=== PATIENT | male | born 1975 | race Caucasian/White ===

== ENCOUNTER 2019-10-12 09:13 | Emergency (ER) | payer SELFPAY ==
--- NOTE | 2019-10-12 10:00 | EDM.PDOC ---
ED HPI GENERAL MEDICAL PROBLEM - General Stated Complaint: chest pains Time Seen by Provider: 10/12/19 09:35 Source of Information: Reports: Patient History Limitations: Reports: No Limitations - History of Present Illness INITIAL COMMENTS - FREE TEXT/NARRATIVE: pt comes in ambulatory here with concerns for recurrent episodes of chest pains that he has been having for 3 days, longest one was last evening lasting about 30 minutes , describe its as dull and sharp/ 8/10/ substernal and radiating to left arm , denies diaphoresis or any associated SOB , dizziness, palpitation, etc or history of similar problems, he presented here last night for evaluation but changed his mind after registration issues, pt went home and tells me he had another brief episd for few minutes similar to the above and nothing since then, he is here this morning asymptomatic and appear comfortable. pt report Hx of GERD but states this is different and unlike GERD sx by any definition, pt report Hx of ongoing smoking and describe himself as a social drinker. pt is hypertensive here on arrival and tells me he had checked his BP in the past and typically it runs in the 140s systolic, rest of vitals are WNL. - Related Data Allergies Allergy/AdvReac Type Severity Reaction Status Date / Time No Known Allergies Allergy Verified 10/12/19 09:49 Home Meds: Home Meds NK [No Known Home Meds] 10/12/19 [History] ED ROS GENERAL - Review of Systems Review Of Systems: See Below Constitutional: Reports: No Symptoms HEENT: Reports: No Symptoms Respiratory: Reports: No Symptoms Cardiovascular: Reports: Chest Pain. Denies: Dyspnea on Exertion, Edema, Lightheadedness, Orthopnea, Palpitations GI/Abdominal: Reports: No Symptoms : Reports: No Symptoms Musculoskeletal: Reports: No Symptoms Skin: Reports: No Symptoms Neurological: Reports: No Symptoms ED EXAM, GENERAL - Physical Exam Exam: See Below Exam Limited By: No Limitations General Appearance: Alert, No Apparent Distress Eye Exam: Bilateral Eye: Normal Inspection Throat/Mouth: Normal Inspection Head: Atraumatic Neck: Normal Inspection Respiratory/Chest: No Respiratory Distress, Lungs Clear, Normal Breath Sounds Cardiovascular: Normal Peripheral Pulses, Regular Rate, Rhythm GI/Abdominal: Normal Bowel Sounds, Soft, Non-Tender Back Exam: Normal Inspection, Full Range of Motion Extremities: Normal Inspection, Normal Range of Motion Neurological: Alert, Oriented, CN II-XII Intact, No Motor/Sensory Deficits Psychiatric: Normal Affect Skin Exam: Warm Course - Vital Signs Text/Narrative:: EKG shows NSR, no acute changes, CXR is clear, trop is elevated, rest of labs are unremarkable. pt remained asymptomatic here, finch has unstable angina and possible infarct last night , was given labetalol , full asa stephanie one does of heparin. Dr Louie Hutton at [place] was consulted and was in acceptance of pt care. pt adamantly refused ambulance transfer, while expressing full understanding of potential associated risk including sudden from recurrent cardiac event in [facility]. pt to remain NPO. Dx unstable angina Plan transfer to [facility]. Last Recorded V/S: Last Vital Signs Temp 36.8 C 10/12/19 09:13 Pulse 72 10/12/19 10:00 Resp 16 10/12/19 10:00 BP 138/99 H 10/12/19 10:00 Pulse Ox 95 10/12/19 10:00 - Orders/Labs/Meds Orders: Active Orders 24 hr Category Date Time Status CXR [Chest 2V] [CR] Stat Exams 10/12/19 10:03 Taken Labs: Laboratory Tests 10/12/19 10/12/19 10/12/19 Range/Units 09:30 09:30 09:30 WBC 11.2 (4.5-12.0) X10-3/uL RBC 5.47 (4.30-5.75) x10(6)uL Hgb 16.9 (13.5-17.8) g/dL Hct 50.1 (30.0-51.3) % MCV 91.6 (80-96) fL MCH 30.8 (27.7-33.6) pg MCHC 33.6 (32.2-35.4) g/dL RDW 12.7 (11.5-15.5) % Plt Count 314 (125-369) X10(3)uL Sodium 136 (135-145) mmol/L Potassium 4.2 (3.5-5.3) mmol/L Chloride 101 (100-110) mmol/L Carbon Dioxide 25 (21-32) mmol/L BUN 14 (7-18) mg/dL Creatinine 1.2 (0.70-1.30) mg/dL Est Cr Clr Drug Dosing 89.70 mL/min Estimated GFR (MDRD) > 60 (>60) BUN/Creatinine Ratio 11.7 (9-20) Glucose 120 H (80-116) mg/dL Calcium 9.4 (8.6-10.2) mg/dL Total Bilirubin 1.2 (0.1-1.3) mg/dL AST 22 (5-25) IU/L ALT 55 H (12-36) U/L Alkaline Phosphatase 85 (56-112) IU/L Troponin I 202.5 H* (4.0-60.3) pg/mL Total Protein 7.9 (6.0-8.0) g/dL Albumin 4.5 (3.5-5.2) g/dL Globulin 3.4 g/dL Albumin/Globulin Ratio 1.3 Departure - Departure Time of Disposition: 11:02 Disposition: DC/Tfer to Other 70 Clinical Impression: Unstable angina - Discharge Information Referrals: PCP,None [Primary Care Provider] - Sepsis Event Note (ED) - Focused Exam Vital Signs: Vital Signs Temp Pulse Resp BP Pulse Ox 10/12/19 10:00 72 16 138/99 H 95 10/12/19 09:13 36.8 C 82 18 182/125 H 95 - My Orders Last 24 Hours: My Active Orders 10/12/19 10:03 CXR [Chest 2V] [CR] Stat - Assessment/Plan Last 24 Hours: My Active Orders 10/12/19 10:03 CXR [Chest 2V] [CR] Stat
[2019-10-12] MEDS ORDERED: Labetalol 20 MG/4 ML Syringe IVPUSH ONE (11:03)
[2019-10-12] MEDS ORDERED: Aspirin 81 MG Tab.Chew PO ONE (11:03)
[2019-10-12] MEDS ORDERED: Heparin Sodium 5,000 Units/ML Vial IVPUSH ONE (11:03)
--- NOTE | 2019-10-14 11:18 | CR ---
CHEST TWO VIEWS INDICATION: Chest pain. PA and lateral views of the chest were obtained 10/12/2019 and reveal the heart to be normal in size and shape. Mediastinum and bony thorax are unremarkable. Overlying EKG leads are noted. Slightly flattened diaphragm leaves, prominent AP diameter, hyperaeration, and interdigitation of diaphragm leaves raises question of obstructive airway disease--possible COPD--correlate clinically. A definite active infiltrate or effusion was not identified. IMPRESSION: 1. No definite acute process. 2. Possible COPD--correlate clinically. MTDD
== END 2019-10-12 12:00 | disposition other institution (70) ==
LOC: FB.ED 09:13
DX: I20.0 Unstable angina (principal); R79.89 Other specified abnormal findings of blood chemistry
CPT/HCPCS: 36415; 71046; 80053; 84484; 85027; 93005; 96374; 96375; 99285; A9270; J1644; J3490